=== PATIENT | female | born 1965 ===

== ENCOUNTER → 2025-02-21 11:22 | Outpatient (REF) | payer OTHER, SELFPAY | LOC: HWRAD 11:22 | PROVIDERS: ATTENDING PHYSICIAN Neurological Surgery; FAMILY PHYSICIAN Family Medicine; REFERRING PHYSICIAN Neurological Surgery | DX: S06.6X0D Traumatic subarachnoid hemorrhage without loss of consciousness, subsequent encounter (principal) | CPT/HCPCS: 70450 ==